=== PATIENT | female | born 1975 | race Caucasian/White ===

== ENCOUNTER 2016-07-31 11:19 | Emergency (ER) | payer BC ==
--- NOTE | ~2016-07-31 | CT4 ---
[facility] A Service of [facility] & [facility] RADIOLOGY TEXT RESULTS PATIENT: ISAURA MOORE LOCATION: [facility] : 73 UNIT #: [id number] AGE: [address]: Jose Cardoso MD SEX: F ORDER DR: [id number] [facility] [address] [place], [place] [address] [id number] E MR#: [id number] Acc #: [id number] NAME: ISAURA MOORE. : 1975 SEX: F STUDY DATE/TIME: 07/31/2016 12:53 UNIT: [facility] ROOM: STUDY DESCRIPTION: CT Abd and Pelv Wo Cont Attending Physician: Jose Cardoso M.D. Ordering Physician: Malini Oconnell P.A.-C. Primary Care Physician: Meghna Arguelles M.D. MEDICAL IMAGING REPORT This report is preliminary unless electronic signature is present EXAM CT abdomen and pelvis without IV contrast COMPARISON None INDICATION 41-year-old female with dysuria for 5 days with bilateral lower abdominal and pelvic pain as well as nausea for [address] exam was performed with one or more of the following radiation dose reduction techniques: automatic exposure control, adjustment of mA and/or kV according to patient size, and iterative reconstruction. FINDINGS Axial CT imaging of the abdomen and pelvis was performed without IV contrast. Lack of IV contrast limits evaluation of adenopathy, vasculature and viscera. Coronal and sagittal reformats were subsequently constructed. Benign bone island in the right sacrum. Marked degenerative disc height loss at L5-S1 with moderate posterior disc protrusion at this level with small posterior protrusion L4-L5. Dependent atelectasis both lower lobes. There is a lobular pericardial structure with mixed fluid and perhaps fat density, most consistent with a slightly lobular pericardial fluid collection measuring up to 5.5 cm x 4.5 cm x 1.0 cm. This is noted to conform to contour of heart and has benign features. Patient is post cholecystectomy. Unenhanced liver, pancreas, spleen, adrenal glands and left kidney are unremarkable. There is nonobstructive calculus in the inferior pole of the right kidney. There is no hydronephrosis or hydroureter. There is no ureteral calculus. Urinary bladder is unremarkable. Unenhanced CT appearance of the uterus and adnexa is within normal limits. There is a right-sided pelvic phlebolith. [facility]. [facility] A Service of [facility] RADIOLOGY TEXT RESULTS PATIENT: ISAURA MOORE LOCATION: [facility] : 73 UNIT #: [id number] AGE: [address]: Jose Cardoso MD SEX: F ORDER DR: There is normal bowel caliber. The appendix is normal. No free fluid or pneumoperitoneum. Normal caliber of the abdominal aorta. No evidence of adenopathy. IMPRESSION 1. No acute abnormality in the abdomen, pelvis or imaged lower chest. There is a slightly lobular benign appearing left pericardial crescentic shaped structure which conforms to the contour of the heart. There is mild motion in this location limiting evaluation but the density is borderline between fat and fluid. Differential diagnosis would include a slightly loculated fuid collection or a mildly heterogeneous fat containing mass, possibly a lipoma. Consider CT chest followup in 6 to 12 months with IV contrast to document stability. These findings and followup recommendations were discussed by phone with Arleen nurse working with Dr. Arguelles, at 9:10 a.m. on 08/04/16, and she relay the information to Dr. Arguelles. 2. Degenerative disc disease of the lower lumbar spine as described in the body of the report. 3. Prior cholecystectomy. 4. Nonobstructive right renal calculus. No evidence of obstructive uropathy. Dictated by... Gilles Reed M.D. THIS IS AN ELECTRONICALLY VERIFIED REPORT Gilles Reed M.D. at 08/04/2016 9:25 AM KIM/phil TD: 07/31/2016 15:39 JOB #: [id number] MEDICAL IMAGING REPORT Page 1 of 1 COPY
--- NOTE | ~2016-07-31 | EKG ---
PATIENT: ISAURA MOORE UNIT #: [id number] Ventricular Rate: 73 BPM Atrial Rate: 73 BPM P-R Interval: 204 ms QRS Duration: 76 ms Q-T Interval: 402 ms QTC Calculation(Bezet): 442 ms P Nelson: 40 degrees Calculated R Nelson: -17 degrees Calculated T Nelson: 20 degrees Diagnosis Line: Normal sinus rhythm Diagnosis Line: Inferior infarct , age undetermined Diagnosis Line: Abnormal ECG Diagnosis Line: When compared with ECG of 21-OCT-2015 14:15, Diagnosis Line: No significant change was found Diagnosis Line: Confirmed by THOM HODGES MD ([id number]) on 07/31/2016 Diagnosis Line: 10:52:47 PM INTERPRETING MD: CRAROLL MATTA
[2016-07-31 11:20] LABS: URINE SOURCE CLEAN CATCH
[2016-07-31 11:26] LABS: BASOPHIL# 0.1 X10e3 (0-0.3); DIFF IND NO; EOSINOPHIL# 0.2 X10e3 (0-0.7); EOSINOPHIL% 3.2 % (0.0-7.0); HEMATOCRIT 42.8 % (35.0-45.0); LYMPHOCYTE# 2.2 X10e3 (1.0-3.5); LYMPHOCYTE% 29.1 % (17.0-45.0); MEAN CORPUSCULAR HEMOGLOBIN 27.8 PG (28-34); MEAN CORPUSCULAR HGB CONC 32.7 g/dL (30-36); MEAN PLATELET VOLUME 8.4 FL (6.5-11.5); MONOCYTE# 0.5 X10e3 (0-1.0); MONOCYTE% 6.5 % (3.0-12.0); NEUTROPHIL# 4.5 X10e3 (1.5-7.1); NEUTROPHIL% 60.2 % (40-75); PLATELET COUNT 345 X10e3 (140-420); RED BLOOD COUNT 5.04 X10e (3.90-5.30); RED CELL DISTRIBUTION WIDTH 14.2 % (11.0-15.5); WHITE BLOOD COUNT 7.5 X10e3 (4.0-10.5)
[2016-07-31 11:26] LABS: URINE APPEARANCE CLEAR; URINE BILIRUBIN NEG (NEG); URINE BLOOD TRACE (NEG); URINE COLOR YELLOW; URINE GLUCOSE NEG (NEG); URINE KETONE NEG (NEG); URINE LEUKOCYTE ESTERASE 1+ (NEG); URINE NITRATE NEG (NEG); URINE PROTEIN NEG (NEG); URINE SPECIFIC GRAVITY 1.004 (1.003-1.035); URINE UROBILINOGEN 0.2 MG/DL (NEG)
[2016-07-31 11:27] LABS: CULTURE INDICATED? YES; URINE BACTERIA AUWI 1+ (NEGATIVE)
[2016-07-31 11:42] LABS: URINE SQUAMOUS EPITHELIAL CELL FEW /[HPF]
[2016-07-31 11:50] LABS: BUN/CREATININE RATIO 17.5; CALCIUM SERUM 8.8 mg/dL (8.4-10.2); CREATININE SERUM 0.8 mg/dL (0.6-1.4); POTASSIUM 3.5 mmol/L (3.5-5.1)
== END 2016-07-31 15:37 | disposition home or self-care (01) ==
LOC: CED 11:19
PROVIDERS: Physician Assistant
DX: N39.0 Urinary tract infection, site not specified (principal); R42 Dizziness and giddiness; J45.909 Unspecified asthma, uncomplicated; K21.9 Gastro-esophageal reflux disease without esophagitis; Z90.49 Acquired absence of other specified parts of digestive tract; Z88.0 Allergy status to penicillin; Z88.2 Allergy status to sulfonamides; Z88.8 Allergy status to other drugs, medicaments and biological substances
CPT/HCPCS: 36415; 74176; 80048; 81003; 82947; 83605; 85025; 87040; 87086; 93005; 96361; 96374; 96375; 99284; J1200; J1885; J2405; J2930

== ENCOUNTER → 2016-08-01 | Outpatient (CLI) | payer BC ==
--- NOTE | ~2016-08-01 | CR7 ---
[facility] A Service of [facility] & [facility] RADIOLOGY TEXT RESULTS PATIENT: ISAURA MOORE LOCATION: [facility] : 73 UNIT #: [id number] AGE: [address]: Sachin Dennison MD SEX: F ORDER DR: [id number] [facility] [address] [place], [place] [address] [id number] O MR#: [id number] Acc #: [id number] NAME: ISAURA MOORE : 1975 SEX: F STUDY DATE/TIME: 08/01/2016 17:28 UNIT: [facility] ROOM: STUDY DESCRIPTION: CR Abdomen Single AP View Attending Physician: Sachin Dennison M.D. Referring Physician: Sachin Dennison M.D. Ordering Physician: Sachin Dennison M.D. Primary Care Physician: Meghna Arguelles M.D. MEDICAL IMAGING REPORT This report is preliminary unless electronic signature is present EXAM Supine radiograph of abdomen 08/01/2016 HISTORY Renal stones. Pain in back on right side, frequent and painful urination. Patient stated prior CT for stones yesterday. FINDINGS Supine radiographs of the abdomen presented. Comparison to CT examination 07/31/2016. No acute-appearing bony abnormality. Bowel gas pattern normal. No indication of free air. Upper abdomen not entirely included on field of view. Nonobstructing right lower pole renal calculus unchanged from prior CT examination and measuring approximately 4-5 mm in diameter on prior CT. No other calculi seen over the bilateral renal beds, anticipated course of ureters or urinary bladder. Dictated by... Maximus Rodrigues M.D. THIS IS AN ELECTRONICALLY VERIFIED REPORT Maximus Rodrigues M.D. at 08/02/2016 9:09 AM PUJA/oswald TD: 08/02/2016 08:34 JOB #: [id number] MEDICAL IMAGING REPORT Page 1 of 1 COPY
== END | disposition home or self-care (01) ==
LOC: CRAD 16:51
DX: N20.0 Calculus of kidney (principal)
CPT/HCPCS: 74000

== ENCOUNTER → 2016-08-16 | Outpatient (CLI) | payer BC ==
--- NOTE | ~2016-08-16 | CR7 ---
[facility] A Service of [facility] RADIOLOGY TEXT RESULTS PATIENT: ISAURA MOORE LOCATION: [facility] : 73 UNIT #: [id number] AGE: [address]: Sachin Dennison MD SEX: F ORDER DR: [id number] [facility] [address] [place], [place] [address] [id number] O MR#: [id number] Acc #: [id number] NAME: ISAURA MOORE : 1975 SEX: F STUDY DATE/TIME: 08/16/2016 14:33 UNIT: [facility] ROOM: STUDY DESCRIPTION: CR Abdomen Single AP View Attending Physician: Sachin Dennison M.D. Referring Physician: Sachin Dennison M.D. Ordering Physician: Sachin Dennison M.D. Primary Care Physician: Meghan Arguelles M.D. MEDICAL IMAGING REPORT This report is preliminary unless electronic signature is present EXAM AP abdomen DATE 08/16/2016 HISTORY History of kidney stones. The patient states pain in the bladder region with pelvic pressure. Symptoms began 07/31/2016. History of lithotripsy 08/05/2016 for right side kidney stones. COMPARISON CT abdomen and pelvis without contrast 07/31/2016. AP abdomen 08/01/2016. FINDINGS Previously described right renal stone is no longer visualized on today's study, and no right ureteral stone is seen, either. No left side urinary tract stones are identified. Nonspecific but nonobstructive bowel gas pattern. Cholecystectomy changes. IMPRESSION No urinary tract stone is seen on either side. The previously described right renal stone is no longer evident. Dictated by... Malena Tolentino M.D. THIS IS AN ELECTRONICALLY VERIFIED REPORT Malena Tolentino M.D. at 08/17/2016 9:41 AM H/to TD: 08/16/2016 18:03 [facility] A Service of [facility] RADIOLOGY TEXT RESULTS PATIENT: ISAURA MOORE LOCATION: [facility] #: [id number] : [birth year] UNIT #: [id number] AGE: [address]: Sachin Dennison MD SEX: F ORDER DR: JOB #: [id number] MEDICAL IMAGING REPORT Page 1 of 1 COPY
== END | disposition home or self-care (01) ==
LOC: CRAD 14:14
DX: N20.0 Calculus of kidney (principal)
CPT/HCPCS: 74000